=== PATIENT | female | born 1990 | race Caucasian/White ===

== ENCOUNTER 2018-11-28 10:06 | Observation (INO) | payer OTHER, MEDICAID ==
[~2018-11-28] VITALS: Ht 162.6 cm; Wt 108.9 kg
[2018-12-06] MEDS ORDERED: PNV1TABL50 PO (12:04)
== END 2018-12-06 12:45 | disposition home or self-care (01) ==
LOC: 8 EST LDRP 12-06 11:31
PROVIDERS: ADMIT Obstetrics & Gynecology; ATTEND Specialist
DX: O26.899 Other specified pregnancy related conditions, unspecified trimester (principal); R10.30 Lower abdominal pain, unspecified; R10.2 Pelvic and perineal pain; M54.9 Dorsalgia, unspecified; N89.8 Other specified noninflammatory disorders of vagina; Z3A.00 Weeks of gestation of pregnancy not specified
CPT/HCPCS: 99281; G0378